=== PATIENT | female | born 1950 | race Caucasian/White ===

== ENCOUNTER 2019-02-11 22:12 | Emergency (ER) | payer MEDICARE, OTHER ==
--- NOTE | 2019-02-11 23:36 | ULT ---
Right upper quadrant ultrasound: 02/11/2019 COMPARISON: None HISTORY: Right upper quadrant pain TECHNIQUE: Multiplanar grayscale sonographic imaging of the right upper quadrant provided. FINDINGS: The pancreas is not well visualized secondary to bowel gas. The pancreatic duct is mildly d ilated. No focal liver lesion. No intrahepatic biliary dilatation. There is an echogenic focus within the gallbladder lumen measuring 2.3 cm with shadowing consistent w ith a gallstone. This stone demonstrates mobility with patient positioning. No gallbladder wall thickening or pericholecystic fluid is seen. The common bile duct measures 6 mm, upper limits of normal for a patient of this age. Right kidney measures 9.5 cm in craniocaudal dimension and demonstrates no stone, hydronephrosis, or mass lesion. IMPRESSION: Cholelithiasis. No sonographic evidence of cholecystitis.
== END 2019-02-11 23:56 | disposition home or self-care (01) ==
LOC: ERS 22:12
DX: K80.20 Calculus of gallbladder without cholecystitis without obstruction (principal); K21.9 Gastro-esophageal reflux disease without esophagitis; E66.9 Obesity, unspecified; F32.9 Major depressive disorder, single episode, unspecified; G47.00 Insomnia, unspecified; I10 Essential (primary) hypertension; M19.90 Unspecified osteoarthritis, unspecified site; J44.9 Chronic obstructive pulmonary disease, unspecified; Z79.899 Other long term (current) drug therapy
CPT/HCPCS: 76705

== ENCOUNTER → 2019-03-07 | Day surgery (SDC) | payer MEDICARE, MEDICAID ==
[2019-03-06 12:03] VITALS: BMI 29.0
[~2019-03-07] MED LIST: Bupivacaine/Epinephrine 0.25% 30 ML VIAL ONE; Fentanyl 100 MCG/2 ML VIAL ONE; SUGAMMADEX SODIUM 500 MG/5 ML VIAL ONE; Sodium Chloride 0.9% 100 ML ONE; cefOXitin 2 GM VIAL ONE
[2019-03-07 09:56] LABS: #Basophils 0.1 thou/uL (0.0-0.2); #Eosinphils 0.1 thou/uL (0.0-0.7); #Lymphocytes 3.5 thou/uL (1.20-3.40); #Monocytes 0.8 thou/uL (0.11-0.59); #Neutrophils 5.5 thou/uL (1.40-6.50); %Basophils 0.7 % (0.0-1.0); %Eosinophils 0.9 % (0.0-10.0); %Lymphocytes 35.5 % (21.0-51.0); %Monocytes 7.6 % (0.0-10.0); %Neutrophils 55.2 % (42.0-75.0); Mean Corpuscular HGB CONC 32.4 g/dL (32.0-36.0); Mean Corpuscular Hemoglobin 28.8 pg (27.0-31.0); Mean Corpuscular Volume 88.9 fL (78.0-98.0); Mean Platelet Volume 6.8 fL (7.4-10.4); Platelet Count 463 thou/uL (130-400); RBC Distribution Width 12.4 % (11.5-14.5)
[2019-03-07 10:14] LABS: Anion Gap 14 mmol/L (10-20); BUN (Urea Nitrogen) 20 mg/dL (9.8-20.1); Calc. Creatinine Clearance 60 mL/min (70-130); Carbon Dioxide 25 mmol/L (23-31); Chloride 100 mmol/L (98-107); Estimated GFR-MDRD 54; Glucose 99 mg/dL (80-115); Potassium 3.8 mmol/L (3.5-5.1); Sodium 135 mmol/L (136-145)
[2019-03-07 10:16] LABS: ALT (SGPT) 9 U/L (8-55); AST (SGOT) 12 U/L (5-34); Albumin 4.2 g/dL (3.4-4.8); Alkaline Phosphatase 68 U/L (40-150); Bilirubin, Direct 0.1 mg/dL (0.1-0.3); Bilirubin, Total 0.3 mg/dL (0.2-1.2); Protein, Total 6.5 g/dL (6.0-8.3)
--- NOTE | 2019-03-07 18:59 | OP ---
DATE OF PROCEDURE: 03/07/2019 PREOPERATIVE DIAGNOSIS: Symptomatic gallstones. POSTOPERATIVE DIAGNOSIS: Symptomatic gallstones. PROCEDURE PERFORMED: Laparoscopic cholecystectomy. ANESTHESIA: General. ESTIMATED BLOOD LOSS: Minimal. COMPLICATIONS: None. SPECIMEN: Gallbladder. FINDINGS: Chronic cholecystitis. DESCRIPTION OF PROCEDURE: The patient was taken to the operating room and laid supine on the operating room table. After general anesthetic was obtained, the abdomen was prepped and draped in a sterile fashion. A curved incision was made below the umbilicus. Cautery was used to dissect down to the umbilical fascia. Umbilical fascia was incised and held up using a Estela. The abdominal cavity was entered using a Yaima clamp. Holding stitch of Vicryl was placed on each side of the fascia. Alexandre trocar was placed. High-flow pneumoperitoneum was obtained. An upper midline 5 mm port and 2 right upper quadrant 5 mm ports were placed under direct camera visualization. The gallbladder was retracted from the gallbladder fossa. The peritoneum of the gallbladder was opened anteriorly and posteriorly. The critical view triangle was seen showing only the cystic duct and cystic artery branching from medial to lateral. There were no other branching structures. Two clips were placed proximally on the cystic duct and one laterally. It was cut using laparoscopic scissors. The cystic artery was taken in the same way. Electrocautery was then used to dissect the gallbladder out of the gallbladder fossa. The gallbladder was placed in an Endo catch bag and brought out through the Alexandre. There was no bleeding or bile in the liver bed. The cystic duct stump and cystic artery stump were intact, without evidence of extravasation or bleeding. All port sites were infiltrated using local anesthesia. All ports were removed under camera visualization. Pneumoperitoneum was let down. The Vicryl was used to close the fascial defect below the umbilicus. All incisions were irrigated and closed using 4-0 Monocryl and Dermabond. The patient was en route to Recovery in stable condition. All instrument counts, needle counts and lap counts were correct. Job ID: [id number]
--- NOTE | 2019-03-07 20:11 | EKG ---
Test Reason : PREOP Blood Pressure : / mmHG Vent. Rate : 077 BPM Atrial Rate : 077 BPM P-R Int : 140 ms QRS Dur : 090 ms QT Int : 394 ms P-R-T Axes : 038 -03 035 degrees QTc Int : 445 ms Normal sinus rhythm Normal ECG When compared with ECG of 28-JAN-2015 22:01, Nonspecific T wave abnormality no longer evident in Anterolateral leads QT has shortened Confirmed by FABIANO ALLRED, DR. SDrake ([id number]) on 03/07/2019 8:11:35 PM Referred By: PHUC Confirmed By:DR. Tierney MARIO MD
== END ==
LOC: SDC 08:40
PROVIDERS: ATTEND Surgery
PROC: 0FT44ZZ Resection of Gallbladder, Percutaneous Endoscopic Approach (ICD-10-PCS; principal; 2019-03-07)
DX: K80.10 Calculus of gallbladder with chronic cholecystitis without obstruction (principal); E78.5 Hyperlipidemia, unspecified; F32.9 Major depressive disorder, single episode, unspecified; K21.9 Gastro-esophageal reflux disease without esophagitis; J44.9 Chronic obstructive pulmonary disease, unspecified; M54.30 Sciatica, unspecified side; Z87.891 Personal history of nicotine dependence; Z79.899 Other long term (current) drug therapy; Z88.0 Allergy status to penicillin; Z88.1 Allergy status to other antibiotic agents; Z88.6 Allergy status to analgesic agent; Z91.011 Allergy to milk products
CPT/HCPCS: 36415; 80048; 80076; 85025; 88304; 93005; 93010; J0131; J0694; J3010; J3490

== ENCOUNTER 2020-01-26 11:42 | Inpatient (IN) | payer MEDICARE, MEDICAID ==
[~2020-01-26 11:42] MED LIST changes: -Bupivacaine/Epinephrine 0.25% 30 ML VIAL ONE; -Fentanyl 100 MCG/2 ML VIAL ONE; +Iopamidol-370 76% 500 ML 1 ML ONE; -SUGAMMADEX SODIUM 500 MG/5 ML VIAL ONE; -Sodium Chloride 0.9% 100 ML ONE; -cefOXitin 2 GM VIAL ONE
[2020-01-26 12:52] LABS: Bacteria/HPF None Seen HPF (None Seen); Bilirubin Negative (Negative); Blood, Urine Negative (Negative); Clarity Clear (Clear); Glucose, Urine (Dipstick) Normal (Negative); Leukocyte Negative Leu/uL (Negative); Nitrite Negative (Negative); Protein, Urine (Dipstick) 30 mg/dL (Neg-Trace); RBC/HPF 0-3 HPF (0-3); Squamous Epithelial 0-3 HPF (0-3); Urobilinogen Normal mg/dL (Less than 2); WBC/HPF 0-3 HPF (0-3)
[2020-01-26 13:11] LABS: ALT (SGPT) 8 U/L (8-55); AST (SGOT) 14 U/L (5-34); Albumin 3.6 g/dL (3.4-4.8); Alkaline Phosphatase 82 U/L (40-110); Anion Gap 15 mmol/L (10-20); BUN (Urea Nitrogen) 23 mg/dL (9.8-20.1); Bilirubin, Total 0.2 mg/dL (0.2-1.2); Calc. Creatinine Clearance 0 mL/min (70-130); Calcium 8.6 mg/dL (7.8-10.44); Carbon Dioxide 19 mmol/L (23-31); Chloride 106 mmol/L (98-107); Estimated GFR-MDRD 59; Globulin 2.2 g/dL (2.4-3.5); Glucose 120 mg/dL (80-115); Potassium 3.7 mmol/L (3.5-5.1); Protein, Total 5.8 g/dL (6.0-8.3); Sodium 136 mmol/L (136-145)
[2020-01-26 13:23] LABS: Hemoglobin 10.2 g/dL (12.0-16.0); Mean Corpuscular HGB CONC 31.3 g/dL (32.0-36.0); Mean Corpuscular Volume 86.2 fL (78.0-98.0); Mean Platelet Volume 7.5 fL (7.4-10.4); Platelet Count 456 thou/uL (130-400); RBC Distribution Width 13.6 % (11.5-14.5); Red Blood Cell (RBC) Count 3.79 mill/uL (4.20-5.40); White Blood Cell (WBC) Count 25.7 thou/uL (4.8-10.8)
[2020-01-26 13:38] LABS: Band 7 % (5-11); Lymphocytes 6 % (21-51); MDiff Complete? YES; Monocytes 1 % (0-10); Neutrophil 84 % (42-75); Reactive Lymphocytes 2 % (0-10)
--- NOTE | 2020-01-26 14:26 | CT ---
CT Brain WO Con: 01/26/2020 12:34 PM CLINICAL HISTORY: Syncope with nausea vomiting and weakness; history of fall within the bathtub. IMAGING TECHNIQUE: Multiple CT images were obtained of the brain without IV contrast. COMPARISON: None. FINDINGS: Brain: There is generalized cerebral and cerebellar atrophy. There is mild chronic small vessel whit e matter ischemic change. No intracranial hemorrhage or infarct is present. No midline shift is noted. Ventricles: Normal. No hydrocephalus. Skull: Intact. Visualized Paranasal sinuses: Clear. Mastoid air cells:Clear. Extracranial soft tissues:Normal. IMPRESSION: No acute intracranial abnormality.
--- NOTE | 2020-01-26 14:40 | CT ---
CT OF THE ABDOMEN AND PELVIS WITH IV CONTRAST INDICATION: 69-year-old female with constipation, weakness and fall COMPARISON: CT the abdomen and pelvis with contrast dated February 11, 2019 FINDINGS: ABDOMEN: Lung bases: Clear Liver: No focal lesion. Gallbladder: Surgically absent Pancreas: Normal. Adrenal glands: Normal. Spleen: Capsular calcification along the superior pole the spleen is stable. Kidneys and ureters: Stable right renal cyst. No hydronephrosis. Vasculature: There are mild vascular calcifications seen involving the visualized vasculature. Lymph nodes:No lymphadenopathy. Free fluid in abdomen:No free fluid is evident. PELVIS: Small and large bowel: There is wall thickening involving the rectum, sigmoid colon and descending co selena. Appendix:Normal Bladder: Normal. Rectal and perirectal soft tissues:Wall thickening Reproductive structures: Surgically absent Free fluid in pelvis: No free fluid is evident. Lymphadenopathy pelvis: No lymphadenopathy is evident. Osseous structures: Stable mild superior endplate compression abnormality of T11. Thoracolumbar scoli osis and multilevel spondylosis is similar appearing. There is scattered degenerative and osteoarthritic changes. Soft tissues:Normal. IMPRESSION: 1. Findings of proctocolitis involving the rectum, sigmoid colon and descending colon.
[2020-01-26] MEDS ORDERED: metroNIDAZOLE 500 MG/100 ML BAG ONE (14:48)
--- NOTE | 2020-01-26 15:07 | RAD ---
Chest AP view INDICATION: Nausea vomiting and constipation; history of fall COMPARISON: April 03, 2018 FINDINGS: Lungs: The lungs are clear Cardiac silhouette: Stable mild cardiomegaly Pulmonary vasculature: Normal Pleural spaces: No pleural effusion or pneumothorax is demonstrated. Upper abdomen: No abnormality seen. Osseous structures: Stable scoliosis and diffuse osteopenia Additional findings: None. IMPRESSION: No acute cardiopulmonary abnormality.
[2020-01-26] MEDS ORDERED: Ondansetron PF 4 MG/2 ML Vial IVP PRN ×2 (16:50→17:33)
[2020-01-26] MEDS ORDERED: Ondansetron ODT 4 MG TAB SL PRN (16:50)
[2020-01-26] MEDS ORDERED: Acetaminophen 325 MG TAB PO PRN (16:50)
[2020-01-26] MEDS ORDERED: HYDROcodone/Acetaminophen 5/325 mg Tablet PO PRN ×3 (16:50→17:33)
[2020-01-26] MEDS ORDERED: Sodium Chloride 0.9% 1,000 ML IV SCH (16:50)
[2020-01-26 17:03] VITALS: BMI 34.0
[2020-01-26] MEDS ORDERED: Ondansetron ODT 4 MG TAB PO PRN (17:33)
[2020-01-26] MEDS: Acetaminophen 325 MG TAB PO PRN (17:44)
[2020-01-26] MEDS ORDERED: Melatonin 3 MG TAB PO PRN (18:32)
[2020-01-26 18:33] LABS: #Monocytes 1.1 thou/uL (0.11-0.59); #Neutrophils 16.9 thou/uL (1.40-6.50); %Basophils 0.1 % (0.0-1.0); %Monocytes 5.7 % (0.0-10.0); %Neutrophils 84.1 % (42.0-75.0); Hemoglobin 9.6 g/dL (12.0-16.0); Mean Corpuscular HGB CONC 31.6 g/dL (32.0-36.0); Mean Corpuscular Volume 85.4 fL (78.0-98.0); Mean Platelet Volume 7.5 fL (7.4-10.4); Platelet Count 430 thou/uL (130-400); RBC Distribution Width 13.7 % (11.5-14.5); Red Blood Cell (RBC) Count 3.54 mill/uL (4.20-5.40); White Blood Cell (WBC) Count 20.1 thou/uL (4.8-10.8)
[2020-01-26] MEDS: Famotidine 20 MG TAB PO SCH (20:32)
[2020-01-26] MEDS: metroNIDAZOLE 500 MG in Premix Bag 1 BAG IVPB SCH (21:27)
[2020-01-26] MEDS ORDERED: metroNIDAZOLE 500 MG in Premix Bag 1 BAG IVPB SCH (22:00)
--- NOTE | 2020-01-27 00:16 | HP ---
PRIMARY CARE PHYSICIAN: Natviidad Nation MD CHIEF COMPLAINT: "I have been feeling constipated for 2 weeks." HISTORY OF PRESENT ILLNESS: Ms. Davis is a pleasant 69-year-old female who has a history of hypertension, obesity, as well as COPD. She says she was in her usual state of health until about 2 weeks ago when she says she was having difficulty having a bowel movement. She says that she had noticed some abdominal cramping and occasionally some pain. She had been taking medications [id number] for constipation without relief. She says after about 5-6 days, she eventually had a bowel movement, but then she took 2 more of the Colace and did not have any relief. She says that she took 3 on the day prior to admission and still was having difficulty having a bowel movement. She says she started having severe abdominal cramping and then felt dizzy and almost passed out. She said she fell "over the tub" after feeling lightheaded and for this reason, she felt she better come to the emergency room for evaluation. In the ER, she was evaluated and had lab work done, which showed she had a white blood cell count of 25.7, and CT scan showed evidence of inflammation in the rectum as well as the sigmoid colon and she is being admitted for colitis. She denies having any fever that she is aware of. She says that sometimes she feels a little bit hot and her eyes are burning, but she had had not any sensations like that recently. She denies any vomiting and she denies any blood in the stools. She has never had a colonoscopy before, but she does admit to having constipation off and on for many years. She says she believes she inherited "a bad colon" from her mother, who had similar symptoms. Otherwise, the patient complains of some sinus symptoms off and on, but she says she did get some antibiotics from Dr. Nation for this and it has since improved. REVIEW OF SYSTEMS: All systems were reviewed and are negative except for that mentioned in the history of present illness. PAST MEDICAL HISTORY: Significant for hypertension, hyperlipidemia, obesity, chronic respiratory failure due to COPD. PAST SURGICAL HISTORY: She has had a laparoscopic cholecystectomy in March 2019. She had retinal detachment repair on the right eye and left knee surgery. ALLERGIES: TO CLINDAMYCIN, CODEINE, PENICILLIN, STREPTOMYCIN, AND SULFA. SOCIAL HISTORY: She is a former smoker. She quit about 10 years ago. She denies any alcohol use. She is and has 2 children and she would like to be a full code. FAMILY HISTORY: Significant for congestive heart failure in her father, pancreatic cancer in her mother. Mother also had thyroid disease and then also hypertension runs in the family as well. CURRENT MEDICATIONS: Include; 1. Protonix 40 mg daily. 2. Combivent inhaler four times a day as needed. 3. Singulair 10 mg daily. 4. Aspirin 81 mg daily. 5. Lisinopril and hydrochlorothiazide 07/13.5, one tablet daily. PHYSICAL EXAMINATION: GENERAL: She is alert and oriented. She appears to be in no acute distress. She is well developed and well nourished. VITAL SIGNS: Blood pressure is 131/74, heart rate 85, respiratory rate of 21, temperature is 98, and O2 saturation is 96% on room air. HEENT: Pupils are equal, round, and reactive. Extraocular muscles are intact. Sclerae are anicteric. Throat, no erythema, no exudates. NECK: No adenopathy. No bruits. LUNGS: Clear to auscultation except for an occasional expiratory wheeze. No rales, no rhonchi. CARDIOVASCULAR: She has a normal S1, S2. There is no S3 or S4. No murmurs, clicks, or rubs. ABDOMEN: Obese, it is soft. She did have some mid abdominal tenderness which is very mild. There is no rebound, no guarding, no organomegaly. EXTREMITIES: There is no clubbing or cyanosis. No edema. No calf tenderness. No joint effusions. NEUROLOGIC: Grossly nonfocal. SKIN AND INTEGUMENT: No skin changes. No rash. LABORATORY DATA: White blood cell count 15.7, hemoglobin 10.2, hematocrit is 32.7, and platelet count is 456. Sodium 136, potassium 3.7, chloride is 106, CO2 is 19, BUN of 23, creatinine 0.95, glucose is 120. Urinalysis was essentially negative. On her chest x-ray, by my reading, the film was a little bit rotated. Heart size was normal. There was a right elevation of the hemidiaphragm. On the CT scan of the abdomen, there were some inflammatory changes in the rectum as well as descending colon and in the rectal area consistent with colitis. ASSESSMENT: This is a pleasant 69-year-old female who presents to the emergency room with chronic constipation, which has gotten worse over the last couple of weeks. She has an elevated white blood cell count and CT findings consistent with colitis. She will be admitted to the hospital and started on empiric antibiotics presuming this is an infectious colitis. Blood cultures have not been done from the ER. We can try to get a set of blood cultures, although the yield may be low. I have explained to the patient that she will at some time need to get a colonoscopy as she has never had one. I explained to her that although we are presuming this is an inflammatory colitis due to infection, it could be due to malignancy as well, there could be an underlying malignancy. The patient voiced understanding and I suggested that she speak with Dr. Nation in order to get a referral to see a enrollment services dean for an outpatient colonoscopy. In the interim, she will be treated with IV antibiotics. 1. Hypertension. We will need to reconcile and restart her home medications for blood pressure. 2. Chronic obstructive pulmonary disease. Once again, reconcile and restart her medicines for chronic obstructive pulmonary disease and we can use DuoNeb as needed. She will also be placed on deep venous thrombosis as well as gastrointestinal prophylaxis. Job ID: [id number]
[2020-01-27] MEDS: Simethicone Chewable 80 MG TAB PO PRN ×2 (03:28→14:16)
[2020-01-27] MEDS: Acetaminophen 325 MG TAB PO PRN ×2 (03:28→15:38)
[2020-01-27 05:09] LABS: Anion Gap 10 mmol/L (10-20); BUN (Urea Nitrogen) 18 mg/dL (9.8-20.1); Calc. Creatinine Clearance 84 mL/min (70-130); Calcium 8.5 mg/dL (7.8-10.44); Carbon Dioxide 26 mmol/L (23-31); Chloride 105 mmol/L (98-107); Estimated GFR-MDRD 71; Glucose 141 mg/dL (80-115); Potassium 3.6 mmol/L (3.5-5.1); Sodium 137 mmol/L (136-145)
[2020-01-27] MEDS: metroNIDAZOLE 500 MG in Premix Bag 1 BAG IVPB SCH ×3 (05:35→21:34)
[2020-01-27] MEDS: Famotidine 20 MG TAB PO SCH ×2 (09:17→20:34)
[2020-01-27] MEDS: Enoxaparin Sodium 40 MG/0.4 ML SYRINGE SC SCH (09:17)
--- NOTE | 2020-01-27 16:03 | PDOC.HOSPP ---
- Subjective Encounter Date: 01/27/20 Encounter Time: 16:01 Subjective: Ms. Davis was seen today in follow-up of coloitis, presumed infectious. She says she continues to have some lower abdominal pain. She also notes a few loose stools. - Objective Vital Signs & Weight: Vital Signs (12 hours) Temp Pulse Resp BP BP Pulse Ox 01/27/20 15:34 99.5 F 77 18 142/67 H 97 01/27/20 12:11 99.0 F 91 19 164/72 H 100 01/27/20 07:23 99.2 F 77 17 136/62 98 Weight Weight 174 lb 4.8 oz I&O: 01/26/20 01/27/20 01/28/20 06:59 06:59 06:59 Intake Total 720 Output Total 350 Balance 370 Result Diagrams: 01/26/20 18:24 01/27/20 04:15 Hospitalist ROS - Medication Medications: Active Medications Generic Name Dose Route Start Last Admin Trade Name Freq PRN Reason Stop Dose Admin Acetaminophen 650 mg 01/26/20 17:33 01/27/20 15:38 Tylenol PO 650 mg Q4H PRN Administration Headache/Fever/Mild Pain (1-3) Enoxaparin Sodium 40 mg 01/27/20 09:00 01/27/20 09:17 Lovenox SC 40 mg 0900 ERIC Administration Famotidine 20 mg 01/26/20 21:00 01/27/20 09:17 Pepcid PO 20 mg BID ERIC Administration Ciprofloxacin/Dextrose 400 mg/ 200 mls @ 200 mls/hr 01/27/20 04:00 01/27/20 15:25 Device IVPB 200 mls 0400,1600 ERIC Administration Metronidazole 500 mg/ Device 100 mls @ 100 mls/hr 01/26/20 22:00 01/27/20 14: 16 IVPB 100 mls Q8HR ERIC Administration Melatonin 3 mg 01/26/20 18:32 01/26/20 22:29 Melatonin PO 3 mg HSPRN PRN Administration Insomnia Simethicone 80 mg 01/26/20 18:32 01/27/20 14:16 Mylicon Chewable PO 80 mg PCHS PRN Administration Gas Pain - Exam Eye: PERRL Heart: RRR, no murmur, no gallops, no rubs, normal peripheral pulses Respiratory: CTAB, no wheezes, no rales, no ronchi, normal chest expansion, no tachypnea Gastrointestinal: soft, non-distended, normal bowel sounds, no guarding, no rigidity, tender to palpation (+ tenderness in the lower abdomen) Extremities: no cyanosis, 1+ LE edema (+ chronic venous stasis changes) Hosp A/P (1) Colitis presumed infectious Code(s): K52.9 - NONINFECTIVE GASTROENTERITIS AND COLITIS, UNSPECIFIED Status : Acute (2) COPD (chronic obstructive pulmonary disease) Status: Acute (3) Hypertension Code(s): I10 - ESSENTIAL (PRIMARY) HYPERTENSION Status: Acute (4) Allergic rhinitis Code(s): J30.9 - ALLERGIC RHINITIS, UNSPECIFIED Status: Acute - Plan * Colitis presumed infectious- continue Cipro and Flagyl * COPD- stable- continue home medications and PRN nebs * HTN - blood pressure is a bit labile- but her home medications have not been re-started- will re-start * Allergic rhinitis- Continue Flonase and Sigulair
[2020-01-27] MEDS: Fluticasone Propionate Nasal Spray 16 gm Bottle NASAL SCH (20:06)
[2020-01-27] MEDS: Cyclobenzaprine 10 MG TAB PO SCH (20:34)
[2020-01-27] MEDS: Montelukast Sodium 10 mg Tablet PO SCH (20:34)
[2020-01-27] MEDS ORDERED: Simvastatin 40 MG TAB PO SCH (21:00)
[2020-01-28 04:18] LABS: #Eosinphils 0.1 thou/uL (0.0-0.7); #Lymphocytes 2.6 thou/uL (1.20-3.40); #Monocytes 0.9 thou/uL (0.11-0.59); #Neutrophils 5.3 thou/uL (1.40-6.50); %Basophils 0.3 % (0.0-1.0); %Eosinophils 0.7 % (0.0-10.0); %Lymphocytes 28.9 % (21.0-51.0); %Monocytes 10.6 % (0.0-10.0); %Neutrophils 59.4 % (42.0-75.0); Hemoglobin 8.5 g/dL (12.0-16.0); Mean Corpuscular HGB CONC 31.6 g/dL (32.0-36.0); Mean Corpuscular Hemoglobin 26.9 pg (27.0-31.0); Mean Corpuscular Volume 85.1 fL (78.0-98.0); Mean Platelet Volume 7.6 fL (7.4-10.4); Platelet Count 370 thou/uL (130-400); RBC Distribution Width 13.4 % (11.5-14.5); Red Blood Cell (RBC) Count 3.17 mill/uL (4.20-5.40); White Blood Cell (WBC) Count 8.9 thou/uL (4.8-10.8)
[2020-01-28 05:10] LABS: Anion Gap 10 mmol/L (10-20); BUN (Urea Nitrogen) 9 mg/dL (9.8-20.1); Calc. Creatinine Clearance 91 mL/min (70-130); Calcium 8.7 mg/dL (7.8-10.44); Carbon Dioxide 25 mmol/L (23-31); Chloride 104 mmol/L (98-107); Estimated GFR-MDRD 77; Glucose 93 mg/dL (80-115); Potassium 3.6 mmol/L (3.5-5.1); Sodium 135 mmol/L (136-145)
[2020-01-28] MEDS: metroNIDAZOLE 500 MG in Premix Bag 1 BAG IVPB SCH ×3 (05:33→21:02)
[2020-01-28] MEDS: Lisinopril/Hydrochlorothiazide 10 mg/12.5 mg Tablet PO SCH (08:22)
[2020-01-28] MEDS: Multivit, Therapeutic 1 TAB PO SCH (08:22)
[2020-01-28] MEDS: FLUoxetine HCl 20 MG CAP PO SCH (08:22)
[2020-01-28] MEDS: Famotidine 20 MG TAB PO SCH ×2 (08:22→21:00)
[2020-01-28] MEDS: Enoxaparin Sodium 40 MG/0.4 ML SYRINGE SC SCH (08:22)
[2020-01-28] MEDS: Simethicone Chewable 80 MG TAB PO PRN (09:35)
--- NOTE | 2020-01-28 12:46 | PDOC.HOSPP ---
- Subjective Encounter Date: 01/28/20 Encounter Time: 12:44 Subjective: Ms. Davis was seen today in follow-up of diverticulitis. She says she continues to have some abdominal pain. she would however like to advance her diet. - Objective Vital Signs & Weight: Vital Signs (12 hours) Temp Pulse Resp BP BP Pulse Ox 01/28/20 11:52 98.7 F 92 18 132/64 96 01/28/20 08:21 98.2 F 90 18 157/67 H 96 01/28/20 04:30 98.8 F 77 14 112/55 L 95 Weight Weight 174 lb 4.8 oz I&O: 01/27/20 01/28/20 01/29/20 06:59 06:59 06:59 Intake Total 720 960 Output Total 350 Balance 370 960 Result Diagrams: 01/28/20 03:59 01/28/20 03:59 Hospitalist ROS - Medication Medications: Active Medications Generic Name Dose Route Start Last Admin Trade Name Freq PRN Reason Stop Dose Admin Acetaminophen 650 mg 01/26/20 17:33 01/27/20 15:38 Tylenol PO 650 mg Q4H PRN Administration Headache/Fever/Mild Pain (1-3) Cyclobenzaprine HCl 10 mg 01/27/20 21:00 01/27/20 20:34 Flexeril PO 10 mg HS ERIC Administration Enoxaparin Sodium 40 mg 01/27/20 09:00 01/28/20 08:22 Lovenox SC 40 mg 0900 ERIC Administration Famotidine 20 mg 01/26/20 21:00 01/28/20 08:22 Pepcid PO 20 mg BID ERIC Administration Fluoxetine HCl 80 mg 01/28/20 09:00 01/28/20 08:22 Prozac PO 80 mg DAILY ERIC Administration Fluticasone Propionate 1 gm 01/27/20 18:00 01/27/20 20:06 Flonase Nasal [place] NASAL 1 spr 1800 ERIC Administration Lisinopril/HCTZ 1 tab 01/28/20 09:00 01/28/20 08:22 Prinizide 10-12.5 PO 1 tab DAILY ERIC Administration Ciprofloxacin/Dextrose 400 mg/ 200 mls @ 200 mls/hr 01/27/20 04:00 01/28/20 04:28 Device IVPB 200 mls 0400,1600 ERIC Administration Metronidazole 500 mg/ Device 100 mls @ 100 mls/hr 01/26/20 22:00 01/28/20 05: 33 IVPB 100 mls Q8HR ERIC Administration Melatonin 3 mg 01/26/20 18:32 01/26/20 22:29 Melatonin PO 3 mg HSPRN PRN Administration Insomnia Montelukast Sodium 10 mg 01/27/20 21:00 01/27/20 20:34 Singulair PO 10 mg HS ERIC Administration Multivitamins 1 tab 01/28/20 09:00 01/28/20 08:22 Theragran PO 1 tab DAILY ERIC Administration Pantoprazole Sodium 40 mg 01/28/20 09:00 01/28/20 08:22 Protonix PO 40 mg DAILY ERIC Administration Simethicone 80 mg 01/26/20 18:32 01/28/20 09:35 Mylicon Chewable PO 80 mg PCHS PRN Administration Gas Pain Simvastatin 40 mg 01/27/20 21:00 01/27/20 20:34 Zocor PO 40 mg HS ERIC Administration - Exam Eye: PERRL Heart: RRR, no murmur, no gallops, no rubs, normal peripheral pulses Respiratory: CTAB, no wheezes, no rales, no ronchi, normal chest expansion Gastrointestinal: soft, non-tender, non-distended, normal bowel sounds, no palpable masses, no hepatomegaly Extremities: no cyanosis, no edema Hosp A/P (1) Colitis presumed infectious Code(s): K52.9 - NONINFECTIVE GASTROENTERITIS AND COLITIS, UNSPECIFIED Status : Acute (2) COPD (chronic obstructive pulmonary disease) Status: Acute (3) Hypertension Code(s): I10 - ESSENTIAL (PRIMARY) HYPERTENSION Status: Acute (4) Allergic rhinitis Code(s): J30.9 - ALLERGIC RHINITIS, UNSPECIFIED Status: Acute - Plan * Colitis presumed infectious- continue Cipro and Flagyl * The leukocytosis has resolved, so I anticipate she is clinically improving * Will advance her diet * COPD- stable- continue home medications and PRN nebs * HTN - blood pressure isbetter * Allergic rhinitis- Continue Flonase and Singulair
[2020-01-28] MEDS: Fluticasone Propionate Nasal Spray 16 gm Bottle NASAL SCH (17:05)
[2020-01-28] MEDS: Acetaminophen 325 MG TAB PO PRN (19:54)
[2020-01-28] MEDS ORDERED: Atorvastatin Calcium 20 MG TAB PO SCH (21:00)
[2020-01-28] MEDS: Montelukast Sodium 10 mg Tablet PO SCH (21:00)
[2020-01-28] MEDS: Cyclobenzaprine 10 MG TAB PO SCH (21:00)
[2020-01-29] MEDS: metroNIDAZOLE 500 MG in Premix Bag 1 BAG IVPB SCH ×2 (07:04→14:39)
[2020-01-29] MEDS: Famotidine 20 MG TAB PO SCH (08:12)
[2020-01-29] MEDS: Multivit, Therapeutic 1 TAB PO SCH (08:13)
[2020-01-29] MEDS: FLUoxetine HCl 20 MG CAP PO SCH (08:13)
[2020-01-29] MEDS: Enoxaparin Sodium 40 MG/0.4 ML SYRINGE SC SCH (08:13)
[2020-01-29] MEDS: Lisinopril/Hydrochlorothiazide 10 mg/12.5 mg Tablet PO SCH (08:13)
--- NOTE | 2020-01-29 11:27 | PDOC.HOSPP ---
- Subjective Encounter Date: 01/29/20 Encounter Time: 11:25 Subjective: Ms. Davis was seen today in follow-up of colitis. She notes some mild abdominal soreness, but admits that it is improved overall. - Objective Vital Signs & Weight: Vital Signs (12 hours) Temp Pulse Resp BP BP Pulse Ox 01/29/20 08:13 97 133/67 01/29/20 03:21 98.4 F 83 18 110/56 L 96 01/29/20 00:10 130/60 01/28/20 23:57 96/54 L 94 L Weight Weight 174 lb 4.8 oz I&O: 01/28/20 01/29/20 01/30/20 06:59 06:59 06:59 Intake Total 960 1550 Balance 960 1550 Result Diagrams: 01/28/20 03:59 01/28/20 03:59 Hospitalist ROS - Medication Medications: Active Medications Generic Name Dose Route Start Last Admin Trade Name Freq PRN Reason Stop Dose Admin Acetaminophen 650 mg 01/26/20 17:33 01/28/20 19:54 Tylenol PO 650 mg Q4H PRN Administration Headache/Fever/Mild Pain (1-3) Atorvastatin Calcium 20 mg 01/28/20 21:00 01/28/20 21:01 Lipitor PO 20 mg HS ERIC Administration Cyclobenzaprine HCl 10 mg 01/27/20 21:00 01/28/20 21:00 Flexeril PO 10 mg HS ERIC Administration Enoxaparin Sodium 40 mg 01/27/20 09:00 01/29/20 08:13 Lovenox SC 40 mg 0900 ERIC Administration Famotidine 20 mg 01/26/20 21:00 01/29/20 08:12 Pepcid PO 20 mg BID ERIC Administration Fluoxetine HCl 80 mg 01/28/20 09:00 01/29/20 08:13 Prozac PO 80 mg DAILY ERIC Administration Fluticasone Propionate 1 gm 01/27/20 18:00 01/28/20 17:05 Flonase Nasal [place] NASAL 1 spr 1800 ERIC Administration Lisinopril/HCTZ 1 tab 01/28/20 09:00 01/29/20 08:13 Prinizide 10-12.5 PO 1 tab DAILY ERIC Administration Ciprofloxacin/Dextrose 400 mg/ 200 mls @ 200 mls/hr 01/27/20 04:00 01/29/20 05:01 Device IVPB 200 mls 0400,1600 ERIC Administration Metronidazole 500 mg/ Device 100 mls @ 100 mls/hr 01/26/20 22:00 01/29/20 07: 04 IVPB 100 mls Q8HR ERIC Administration Melatonin 3 mg 01/26/20 18:32 01/26/20 22:29 Melatonin PO 3 mg HSPRN PRN Administration Insomnia Montelukast Sodium 10 mg 01/27/20 21:00 01/28/20 21:00 Singulair PO 10 mg HS ERIC Administration Multivitamins 1 tab 01/28/20 09:00 01/29/20 08:13 Theragran PO 1 tab DAILY ERIC Administration Pantoprazole Sodium 40 mg 01/28/20 09:00 01/29/20 08:13 Protonix PO 40 mg DAILY REIC Administration Simethicone 80 mg 01/26/20 18:32 01/28/20 09:35 Mylicon Chewable PO 80 mg PCHS PRN Administration Gas Pain - Exam Eye: PERRL, anicteric sclera Heart: RRR, no murmur, no gallops, no rubs, normal peripheral pulses Respiratory: CTAB, no wheezes, no rales, no ronchi, normal chest expansion, no tachypnea Gastrointestinal: soft, non-tender, non-distended, normal bowel sounds, no palpable masses Extremities: no cyanosis, 1+ LE edema (trace pedal edema in the lower extremities) Hosp A/P (1) Colitis presumed infectious Code(s): K52.9 - NONINFECTIVE GASTROENTERITIS AND COLITIS, UNSPECIFIED Status : Acute (2) COPD (chronic obstructive pulmonary disease) Status: Acute (3) Hypertension Code(s): I10 - ESSENTIAL (PRIMARY) HYPERTENSION Status: Acute (4) Allergic rhinitis Code(s): J30.9 - ALLERGIC RHINITIS, UNSPECIFIED Status: Acute - Plan * Colitis presumed infectious- much improved, and patient is tolerating p.o. * She is stable for discharge home with close out patient follow-up * HTN - blood pressure isbetter * Allergic rhinitis- Continue Flonase and Singulair
[2020-01-29] MEDS: Simethicone Chewable 80 MG TAB PO PRN (11:31)
--- NOTE | 2020-01-29 12:15 | DIS ---
DATE OF ADMISSION: 01/27/2020 DATE OF DISCHARGE: 01/29/2020 PRIMARY CARE PHYSICIAN: Kam Richard MD DISCHARGE DISPOSITION: Home. DISCHARGE DIAGNOSES: 1. Colitis, presumed infectious. 2. Hypertension. 3. Hyperlipidemia. 4. Chronic obstructive pulmonary disease and chronic respiratory failure. 5. Obesity. DISCHARGE MEDICATIONS: Include; 1. Ciprofloxacin 500 mg one p.o. twice a day for 4 days. 2. Flagyl 500 mg p.o. three times a day for 4 days. 3. Symbicort 40 mg at bedtime. 4. Protonix 40 mg daily. 5. Multivitamin once a day. 6. Singulair 10 mg at bedtime. 7. Lisinopril/hydrochlorothiazide 10/12.5 once daily. 8. Albuterol and Atrovent nebs q.i.d. 9. Glucosamine chondroitin two tablets daily. 10. Fluticasone 16 g one spray each day. 11. Fluoxetine 80 mg daily. 12. Flexeril 10 mg at bedtime. 13. Aspirin 81 mg a day. IMAGING: The patient had a CT scan of the abdomen and pelvis, findings consistent with proctitis involving the rectum, sigmoid colon, and descending colon. The patient had a CT scan of the brain and there was no acute intracranial abnormality. CODE STATUS: Full code. ALLERGIES: TO CLINDAMYCIN, CODEINE, PENICILLIN G, STREPTOMYCIN, SULFA WELL CODEINE. HOSPITAL COURSE: Ms. Davis is a pleasant 69-year-old female, who was admitted to the hospital after having severe constipation symptoms for the last 2 weeks. She was evaluated in the ER and found to have an elevated white blood cell count. Due to the leukocytosis and her symptoms as well as the radiographic findings consistent with colitis, she was brought into the hospital, started on IV antibiotics and monitored over the course of the next few days. Started off on a clear liquid diet. Over her hospital course, she improved symptomatically and was subsequently able to be discharged home. During her hospital stay, she was instructed on the need to follow up with her primary care physician and get a referral to see a contract negotiation manager. She has never had a colonoscopy and will need this done. I explained to her that even though this is a presumed infectious etiology, other etiologies such as malignancy have not been ruled out. Therefore, she states that she will talk with her primary care physician about this and she is being currently discharged home hopefully to follow up within 2 to 3 weeks. Job ID: [id number]
[2020-01-29 12:30] VITALS: BP 129/61; TEMP 98.1
== END 2020-01-29 15:10 | disposition home or self-care (01) | DRG 392 ==
LOC: ERS 11:42 → 2NO 16:56 → OBSVTOIN 01-27 07:48
PROVIDERS: ADMIT Internal Medicine; ATTEND Internal Medicine
DX: A09 Infectious gastroenteritis and colitis, unspecified (principal); J96.10 Chronic respiratory failure, unspecified whether with hypoxia or hypercapnia; I10 Essential (primary) hypertension; E78.5 Hyperlipidemia, unspecified; J44.9 Chronic obstructive pulmonary disease, unspecified; E66.9 Obesity, unspecified; K62.89 Other specified diseases of anus and rectum; M19.90 Unspecified osteoarthritis, unspecified site; M81.0 Age-related osteoporosis without current pathological fracture; G89.29 Other chronic pain; G47.00 Insomnia, unspecified; K21.9 Gastro-esophageal reflux disease without esophagitis; E78.00 Pure hypercholesterolemia, unspecified; F41.9 Anxiety disorder, unspecified; F32.9 Major depressive disorder, single episode, unspecified; J30.9 Allergic rhinitis, unspecified; K59.00 Constipation, unspecified; Z88.1 Allergy status to other antibiotic agents; Z88.0 Allergy status to penicillin; Z88.2 Allergy status to sulfonamides; Z88.8 Allergy status to other drugs, medicaments and biological substances; Z90.49 Acquired absence of other specified parts of digestive tract; Z90.710 Acquired absence of both cervix and uterus; Z68.34 Body mass index [BMI] 34.0-34.9, adult
CPT/HCPCS: 36415; 70450; 71045; 74177; 80048; 80053; 81003; 81015; 84484; 85025; 93005; 96360; 96361; 96365; 96367; J0744; J1650; J1956; Q9967

== ENCOUNTER 2020-02-06 13:52 | Emergency (ER) | payer MEDICARE, MEDICAID ==
--- NOTE | 2020-02-06 14:15 | RAD ---
Exam: Chest one view HISTORY:Nausea. Vomiting and dizziness. Comparison: 01/26/2020 FINDINGS: Cardiac silhouette: Normal Aorta: Unremarkable Pulmonary vessels: Normal Costophrenic angles: Clear LUNGS: No masses or consolidation. Stable elevation the right hemidiaphragm. Pneumothorax: None Osseous abnormalities: Stable old right rib fractures and stable rightward curvature of the thoracic spine IMPRESSION: No acute cardiopulmonary process. No significant interval change.
[2020-02-06 14:54] LABS: #Basophils 0.1 thou/uL (0.0-0.2); #Eosinphils 0.1 thou/uL (0.0-0.7); #Lymphocytes 2.3 thou/uL (1.20-3.40); #Monocytes 0.6 thou/uL (0.11-0.59); #Neutrophils 4.9 thou/uL (1.40-6.50); %Basophils 1.3 % (0.0-1.0); %Eosinophils 1.8 % (0.0-10.0); %Lymphocytes 28.2 % (21.0-51.0); %Monocytes 7.1 % (0.0-10.0); %Neutrophils 61.6 % (42.0-75.0); Hemoglobin 9.6 g/dL (12.0-16.0); Mean Corpuscular HGB CONC 31.5 g/dL (32.0-36.0); Mean Corpuscular Hemoglobin 26.4 pg (27.0-31.0); Mean Corpuscular Volume 83.9 fL (78.0-98.0); Mean Platelet Volume 6.9 fL (7.4-10.4); Platelet Count 537 thou/uL (130-400); RBC Distribution Width 13.5 % (11.5-14.5); Red Blood Cell (RBC) Count 3.64 mill/uL (4.20-5.40)
[2020-02-06 15:19] LABS: ALT (SGPT) 12 U/L (8-55); AST (SGOT) 12 U/L (5-34); Albumin 3.6 g/dL (3.4-4.8); Alkaline Phosphatase 64 U/L (40-110); Anion Gap 9 mmol/L (10-20); BUN (Urea Nitrogen) 16 mg/dL (9.8-20.1); Bilirubin, Total 0.2 mg/dL (0.2-1.2); Calc. Creatinine Clearance 0 mL/min (70-130); Calcium 8.9 mg/dL (7.8-10.44); Carbon Dioxide 28 mmol/L (23-31); Chloride 103 mmol/L (98-107); Estimated GFR-MDRD 65; Globulin 2.5 g/dL (2.4-3.5); Glucose 109 mg/dL (80-115); Lipase 13 U/L (8-78); Potassium 4.5 mmol/L (3.5-5.1); Protein, Total 6.1 g/dL (6.0-8.3); Sodium 135 mmol/L (136-145)
--- NOTE | 2020-02-06 15:44 | CT ---
CT head noncontrast HISTORY: Dizziness. Altered mental status. COMPARISON: 01/26/2020. FINDINGS: There is no evidence of acute intracranial hemorrhage or infarct. The ventricles appear nor mal in size, shape and position. Mild diffuse cortical atrophy is stable. There is no mass effect or shift of midline structures. IMPRESSION : No acute intracranial abnormalities are demonstrated.
[2020-02-06 16:35] LABS: Bilirubin Negative (Negative); Blood, Urine Negative (Negative); Clarity Clear (Clear); Glucose, Urine (Dipstick) Normal (Negative); Leukocyte Negative Leu/uL (Negative); Nitrite Negative (Negative); Protein, Urine (Dipstick) Negative (Neg-Trace); Urobilinogen Normal mg/dL (Less than 2)
== END 2020-02-06 17:40 | disposition home or self-care (01) ==
LOC: ERS 13:52
DX: R42 Dizziness and giddiness (principal); R11.2 Nausea with vomiting, unspecified; J44.9 Chronic obstructive pulmonary disease, unspecified; E66.9 Obesity, unspecified; K21.9 Gastro-esophageal reflux disease without esophagitis; I10 Essential (primary) hypertension; E78.5 Hyperlipidemia, unspecified; E78.00 Pure hypercholesterolemia, unspecified; M19.90 Unspecified osteoarthritis, unspecified site; G47.00 Insomnia, unspecified; F41.9 Anxiety disorder, unspecified; F32.9 Major depressive disorder, single episode, unspecified; Z87.891 Personal history of nicotine dependence; Z79.899 Other long term (current) drug therapy; Z79.82 Long term (current) use of aspirin
CPT/HCPCS: 36416; 70450; 71045; 80053; 81003; 83690; 84484; 85025; 87086; 93005; 96360; 96361

== ENCOUNTER 2022-06-20 00:28 | Emergency (ER) | payer OTHER ==
[2022-06-20 01:03] LABS: #Eosinphils 0.1 thou/uL (0.0-0.7); #Lymphocytes 2.4 thou/uL (1.20-3.40); #Monocytes 0.8 thou/uL (0.11-0.59); #Neutrophils 8.9 thou/uL (1.40-6.50); %Basophils 0.2 % (0.0-1.0); %Lymphocytes 19.3 % (21.0-51.0); %Monocytes 6.3 % (0.0-10.0); %Neutrophils 73.2 % (42.0-75.0); Mean Corpuscular HGB CONC 33.3 g/dL (32.0-36.0); Mean Corpuscular Hemoglobin 30.2 pg (27.0-31.0); Mean Corpuscular Volume 90.7 fL (78.0-98.0); Mean Platelet Volume 6.9 fL (7.4-10.4); Platelet Count 400 thou/uL (130-400); Red Blood Cell (RBC) Count 4.32 mill/uL (4.20-5.40); White Blood Cell (WBC) Count 12.2 thou/uL (4.8-10.8)
[2022-06-20 01:26] LABS: ALT (SGPT) 17 U/L (8-55); AST (SGOT) 17 U/L (5-34); Alkaline Phosphatase 67 U/L (40-110); Anion Gap 13 mmol/L (10-20); BUN (Urea Nitrogen) 29 mg/dL (9.8-20.1); Bilirubin, Total 0.2 mg/dL (0.2-1.2); Calc. Creatinine Clearance 0 mL/min (70-130); Calcium 9.2 mg/dL (7.8-10.44); Carbon Dioxide 23 mmol/L (23-31); Chloride 105 mmol/L (98-107); Estimated GFR 70; Globulin 2.7 g/dL (2.4-3.5); Glucose 157 mg/dL (80-115); Potassium 3.9 mmol/L (3.5-5.1); Protein, Total 6.7 g/dL (5.8-8.1); Sodium 137 mmol/L (136-145)
[2022-06-20] MEDS ORDERED: Fentanyl 100 MCG/2 ML VIAL ONE ×2 (01:52→03:00)
[2022-06-20 01:54] LABS: SARS-CoV-2 NAA Rapid Test Not Detected (NotDetected)
== END 2022-06-20 03:55 | disposition home or self-care (01) ==
LOC: ERS 00:28
DX: S52.532A Colles' fracture of left radius, initial encounter for closed fracture (principal); J44.9 Chronic obstructive pulmonary disease, unspecified; I10 Essential (primary) hypertension; Z79.899 Other long term (current) drug therapy; Z20.822 Contact with and (suspected) exposure to COVID-19; W19.XXXA Unspecified fall, initial encounter; Y92.009 Unspecified place in unspecified non-institutional (private) residence as the place of occurrence of the external cause
CPT/HCPCS: 25605; 71045; 73110 ×2; 73502; 80053; 85025; 93005; 96374; 96376; 99284; U0002; 36415; J3010